=== PATIENT | female | born 1960 | race Caucasian/White ===

== ENCOUNTER → 2016-06-23 | Day surgery (SDC) | payer OTHER ==
[2016-06-23 10:00] LABS: HCT 42.2 % (37.0-47.0); MCH 30.8 pg (25.0-31.0); MCHC 33.2 g/dL (32.0-36.0); MCV 92.7 fL (78.0-100.0); MPV 9.7 fL (6.0-9.5); RBC 4.55 M/uL (4.20-5.40); WBC 6.2 K/uL (4.0-10.5)
[2016-06-23 10:15] LABS: ALBUMIN 4.5 g/dL (3.5-5.0); BILIRUBIN - TOTAL 0.5 mg/dL (0.1-1.0); CREATININE 0.9 mg/dL (0.5-1.0); GLOBULIN (CALCULATION) 2.9 g/dL (2.2-4.2); POTASSIUM 4.5 mmol/L (3.5-5.1); TOTAL PROTEIN 7.4 g/dL (6.4-8.3)
== END | disposition home or self-care (01) ==
LOC: FAS 07:51
PROVIDERS: Surgery
DX: Z12.11 Encounter for screening for malignant neoplasm of colon (principal); E78.00 Pure hypercholesterolemia, unspecified; Z98.890 Other specified postprocedural states
CPT/HCPCS: 36415; 80053; J2704